=== PATIENT | female | born 1995 | race Caucasian/White ===

== ENCOUNTER → 2017-10-22 | Outpatient (CLI) | payer BC ==
[~2017-10-22] MED LIST: IBUP600T22 PO
[2017-10-22 10:19] LABS: LDL CHOLESTEROL 93 mg/dl
== END ==
LOC: LAB 09:22
PROVIDERS: ATTEND Nurse Practitioner Obstetrics & Gynecology
DX: Z00.00 Encounter for general adult medical examination without abnormal findings (principal); E03.9 Hypothyroidism, unspecified
CPT/HCPCS: 36415; 82040; 82247; 82310; 82374; 82435; 82465; 82565; 82947; 83718; 84075; 84132; 84155; 84295; 84439; 84443; 84450; 84460; 84478; 84520; 85027

== ENCOUNTER → 2017-11-28 | Outpatient (REF) | payer BC ==
[2017-11-28 18:32] LABS: PLATELET COUNT, AUTOMATED 244 K/uL (150-450)
== END ==
LOC: ZZSENDIN 18:16
PROVIDERS: ATTEND Physician Assistant Medical
DX: R07.9 Chest pain, unspecified (principal)
CPT/HCPCS: 82040; 82247; 82310; 82374; 82435; 82565; 82947; 84075; 84132; 84155; 84295; 84450; 84460; 84484; 84520; 85025; 85379